=== PATIENT | female | born 2000 | race Caucasian/White ===

== ENCOUNTER 2022-01-03 19:31 | Emergency (ER) | payer SELFPAY ==
[2022-01-03] MEDS ORDERED: Boostrix 0.5 ML (Tdap) VIAL (>/=7 yrs of age) ONE (19:46)
[2022-01-03] MEDS ORDERED: Lidocaine 1% (PF) 30 ML VIAL ONE (19:46)
[2022-01-03] MEDS ORDERED: traMADol HCl 50 MG TAB ONE (20:45)
[2022-01-03] MEDS ORDERED: Bacitracin 1 PK ONE (20:46)
[2022-01-03] MEDS ORDERED: Cephalexin 250 MG CAP ONE (20:46)
== END 2022-01-03 21:07 | disposition home or self-care (01) ==
LOC: NAV ERS 19:31
DX: S81.812A Laceration without foreign body, left lower leg, initial encounter (principal); X58.XXXA Exposure to other specified factors, initial encounter
CPT/HCPCS: 12034; 90471; 90715; J2001